=== PATIENT | male | born 1955 | race Caucasian/White ===

== ENCOUNTER 2018-04-06 10:08 | Emergency (ER) | payer OTHER, MEDICARE ==
[2018-04-06] MEDS ORDERED: LOSA50TA74 PO (10:12)
[2018-04-06] MEDS ORDERED: INSU100C14 SQ (10:12)
[2018-04-06] MEDS ORDERED: METF-450 PO (10:13)
[2018-04-06] MEDS ORDERED: LANI SUBQ (10:13)
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
[2018-04-06 11:30] VITALS: BP 146/103
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
== END 2018-04-06 11:56 | disposition home or self-care (01) ==
LOC: ER 10:19
DX: S00.93XA Contusion of unspecified part of head, initial encounter (principal); M54.2 Cervicalgia; V49.9XXA Car occupant (driver) (passenger) injured in unspecified traffic accident, initial encounter
CPT/HCPCS: 70450; 72125; 99284

== ENCOUNTER → 2018-04-06 | Outpatient (CLI) | payer OTHER, MEDICARE ==
[~2018-04-06] MED LIST: INSU100C14 SQ; LANI SUBQ; LOSA50TA74 PO; METF-450 PO
== END ==
LOC: AMB 09:18
PROVIDERS: ATTEND Nurse Practitioner
DX: R51 Headache (principal); M54.2 Cervicalgia; S00.83XA Contusion of other part of head, initial encounter; V49.9XXA Car occupant (driver) (passenger) injured in unspecified traffic accident, initial encounter
CPT/HCPCS: A0425; A0427